=== PATIENT | female | born 1980 | race Hispanic/Latino ===

== ENCOUNTER 2020-01-27 10:31 | Day surgery (SDC) | payer OTHER, SELFPAY ==
[~2020-01-27 10:31] MED LIST: Dexamethasone 20 MG/5 ML VIAL ONE; Glycopyrrolate 0.2 MG/ML 5 ML SYRINGE ONE; Ketorolac Tromethamine 30 MG/ML VIAL ONE; Lidocaine 1% PF 5 ML VIAL ONE; PROPOFOL 200 MG/20 ML VIAL ONE; Rocuronium Bromide 10 MG/ML (10ML VIAL) ONE; Succinylcholine Chloride 20 MG/ML 10 ml SYRINGE FS ONE
[2020-01-27 12:07] LABS: #Basophils 0.1 thou/uL (0.0-0.2); #Eosinphils 0.1 thou/uL (0.0-0.7); #Lymphocytes 1.4 thou/uL (1.20-3.40); #Monocytes 0.7 thou/uL (0.11-0.59); #Neutrophils 8.2 thou/uL (1.40-6.50); %Basophils 0.7 % (0.0-1.0); %Eosinophils 0.5 % (0.0-10.0); %Lymphocytes 13.6 % (21.0-51.0); %Monocytes 6.7 % (0.0-10.0); %Neutrophils 78.5 % (42.0-75.0); Hemoglobin 8.7 g/dL (12.0-16.0); Mean Corpuscular HGB CONC 29.7 g/dL (32.0-36.0); Mean Corpuscular Hemoglobin 19.5 pg (27.0-31.0); Mean Corpuscular Volume 65.6 fL (78.0-98.0); Mean Platelet Volume 12.4 fL (7.4-10.4); Platelet Count 368 thou/uL (130-400); RBC Distribution Width 18.7 % (11.5-14.5); Red Blood Cell (RBC) Count 4.48 mill/uL (4.20-5.40); White Blood Cell (WBC) Count 10.5 thou/uL (4.8-10.8)
[2020-01-27 12:12] LABS: BHCG - Serum Negative (NEGATIVE); Pregs Control Background? CLEAR/WHITE (CLR/WHITE); Pregs Control Bar Appear? YES (CONTROL BAR)
[2020-01-27 12:20] LABS: ALT (SGPT) 38 U/L (8-55); AST (SGOT) 24 U/L (5-34); Albumin 3.9 g/dL (3.5-5.0); Alkaline Phosphatase 80 U/L (40-110); Anion Gap 12 mmol/L (10-20); BUN (Urea Nitrogen) 11 mg/dL (7.0-18.7); Bilirubin, Total 0.3 mg/dL (0.2-1.2); Calc. Creatinine Clearance 0 mL/min (70-130); Calcium 8.8 mg/dL (7.8-10.44); Carbon Dioxide 25 mmol/L (22-29); Chloride 104 mmol/L (98-107); Estimated GFR-MDRD Greater than 90; Globulin 3.3 g/dL (2.4-3.5); Glucose 133 mg/dL (70-105); Lipase 8 U/L (8-78); Potassium 3.8 mmol/L (3.5-5.1); Protein, Total 7.2 g/dL (6.0-8.3); Sodium 137 mmol/L (136-145)
[2020-01-27 12:28] LABS: Anisocytosis SLIGHT = 6-15 cells (100X) (0-5/hpf); Hypochromia SLIGHT = 6-15 cells (100X) (0-5/hpf); Large Platelets SLIGHT; MDiff Complete? YES; Microcytosis SLIGHT = 6-15 cells (100X) (0-5/hpf); Ovalocytes SLIGHT = 2-5 cells (100X) (0-1/hpf); Platelet Morphology Comment Appears Adequate; Polychromasia SLIGHT = 2-3 cells (100X) (0-2/hpf); Target Cells SLIGHT = 2-5 cells (100X) (0-1/hpf)
[2020-01-27] MEDS ORDERED: Ondansetron PF 4 MG/2 ML Vial ONE ×2 (12:29→18:27)
[2020-01-27] MEDS ORDERED: Morphine 4 MG/ML VIAL ONE (12:29)
[2020-01-27] MEDS ORDERED: Fentanyl 100 MCG/2 ML VIAL ONE ×4 (13:19→16:41)
[2020-01-27 13:21] LABS: Bilirubin Negative (Negative); Blood, Urine Negative (Negative); Clarity Clear (Clear); Glucose, Urine (Dipstick) Normal (Negative); Ketone, Urine Trace mg/dL (Negative); Leukocyte Negative Leu/uL (Negative); Nitrite 2+ (Negative); Protein, Urine (Dipstick) 20 mg/dL (Neg-Trace); RBC/HPF 0-3 HPF (0-3); Specific Gravity, Urine 1.032 (1.002-1.036); Squamous Epithelial 0-3 HPF (0-3); Urobilinogen Normal mg/dL (Less than 2); WBC/HPF 0-3 HPF (0-3); pH, Urine 5.5 (5.0-9.0)
[2020-01-27 13:26] LABS: Bacteria/HPF 1+ HPF (None Seen)
[2020-01-27] MEDS ORDERED: Iopamidol-370 76% 500 ML 1 ML ONE (13:45)
--- NOTE | 2020-01-27 14:01 | CT ---
CT ABDOMEN AND PELVIS WITH IV CONTRAST 01/27/2020 CLINICAL INFORMATION: Acute onset of abdominal pain with associated nausea. COMPARISON: None. Technique: Multiple contiguous axial CT images are obtained through the abdomen and pelvis with IV contrast. Cor onal reformatted images are provided. FINDINGS: Lower Chest: Minimal dependent atelectasis. Vessels: Abdominal aorta is normal in caliber. Abdomen: Portal vein:Patent Gallbladder: Surgically absent. Liver: Decreased attenuation suggesting diffuse fatty infiltration. The liver is enlarged in cranioca udal dimensions measuring 25 cm. This may be on the basis of a Nuha's lobe configuration. A 1.5 cm hypodense lesion is seen in the posterior aspect medial segment left hepatic lobe which is difficu lt to further characterize on this exam. Spleen: within normal limits. Pancreas: within normal limits. Adrenals: within normal limits. Kidneys: within normal limits. Bowel: There is a supraumbilical ventral abdominal wall hernia which does contain a loop of small bow el. There is mild dilatation of the loops of bowel most proximal to the level of this hernia measuring 3.5 cm, but the remaining loops of small bowel are normal in caliber. A developing partial small bowel obstruction is a possibility. Minimal stranding is seen adjacent to the hernia. Appendix: The appendix is visualized and normal in caliber. Peritoneum: No ascites or free air; no fluid collection. Mesentery and Retroperitoneum: No enlarged mesenteric or retroperitoneal lymph nodes. Abdominal Wall: Ventral abdominal wall hernia as described above. Pelvis: Reproductive Organs: There is suggestion of a 6.8 cm mass in the uterine fundus likely attributable t o a uterine fibroid. Bladder: Incompletely distended. Bones: Degenerative changes are seen in the thoracic spine. IMPRESSION: 1. Supra umbilical ventral abdominal wall hernia which does contain a loop of bowel. The loops of bow el most proximal to this hernia defect are mildly dilated measuring up to 3.5 cm. A developing partial small bowel obstruction is a possibility. Minimal inflammatory stranding is seen within the h ernia defect adjacent to the loop of small bowel. 2. Probable uterine fibroid. 3. Diffuse fatty infiltration of the liver with a difficult to characterize 1.5 cm hypodense lesion m edial segment left hepatic lobe. Follow-up CT scan versus MRI abdomen in 4-6 months is recommended. 4. Above findings discussed with Dr. Aranda in the emergency department on 01/27/2020 at 1358 hours.
[2020-01-27] MEDS ORDERED: CEFAZOLIN 2 GM in Premix Bag 1 BAG IVPB SCH (14:30)
[2020-01-27] MEDS ORDERED: Bupivacaine/Epinephrine 0.25% 30 ML VIAL ONE (14:38)
[2020-01-27] MEDS ORDERED: Lidocaine 2% PF 5 ML VIAL ONE (14:38)
[2020-01-27] MEDS ORDERED: Levofloxacin 500 mg/D5W 100 ml Premix Bag ONE (15:10)
[2020-01-27] MEDS ORDERED: Morphine 2 MG/ML VIAL ONE (17:31)
--- NOTE | 2020-01-27 18:12 | HP ---
CHIEF COMPLAINT: Severe mid-abdominal pain. HISTORY OF PRESENT ILLNESS: The patient is a 39-year-old morbidly obese female with a 2-day history of severe pain in the supraumbilical area associated with nausea. No vomiting. Last meal was yesterday. No previous episodes. PAST MEDICAL HISTORY: Diabetes mellitus, morbid obesity. PAST SURGICAL HISTORY: She has had a laparoscopic cholecystectomy and a section. MEDICATIONS: Metformin, but she had not taken it in months. ALLERGIES: SHE HAS AN ALLERGY TO PENICILLIN. SOCIAL HISTORY: She is . No tobacco. No alcohol. Unemployed. FAMILY HISTORY: Diabetes and hypertension. PHYSICAL EXAMINATION: VITAL SIGNS: She is afebrile, pulse 93, and blood pressure 116/71. GENERAL: Morbidly obese female, very, very tearful, crying, but awake, alert. HEENT: Unremarkable. LUNGS: Clear. HEART: Regular rate and rhythm. ABDOMEN: Morbidly obese. Very tender in the supraumbilical area. There is fullness there. She is very obese. The hernia has been attempted to be reduced and multiple times it is extremely tender. She would not allow me to really put much pressure on it. EXTREMITIES: Unremarkable. LABORATORY DATA: Her white count is 10.5, H and H of 8.7 and 29, and platelet count 368. Electrolytes; her glucose is 133, otherwise unremarkable. Urinalysis negative. She had a CT scan showing, she has a fatty liver. There is a 1.5-cm hypodense lesion in the posterior aspect of the medial left hepatic lobe. She has a supraumbilical ventral hernia, which contains a loop of small bowel with some mild dilatation of the proximal loops. ASSESSMENT: Strangulated ventral hernia. PLAN: To do an open repair. CONSENT: I have discussed planned procedure as well as risk of bleeding, infection, recurrence, need to resect small bowel. She understands and gives informed consent. Job ID: [id number]
[2020-01-27] MEDS ORDERED: HYDROcodone/Acetaminophen 5/325 mg Tablet ONE (18:27)
--- NOTE | 2020-01-27 18:46 | OP ---
DATE OF PROCEDURE: 01/27/2020 PREOPERATIVE DIAGNOSIS: Incarcerated ventral hernia. PROCEDURES PERFORMED: Open ventral hernia repair with mesh implantation. INDICATIONS: This is a 39-year-old morbidly obese female, who developed a painful mass in her epigastrium 2 days ago, it progressed. She was having nausea. CT showed small bowel incarcerated with proximal obstruction. FINDINGS: Bowel was viable 8 cm PROCEED mesh patch used to repair it. DESCRIPTION OF PROCEDURE: After informed consent was obtained, the patient was taken to the operating room, given general endotracheal anesthesia. She was placed in the supine position. Her abdomen was prepped and draped in usual fashion. An upper midline incision was performed. Subcu was divided sharply down to the hernia sac. The hernia sac was then dissected out circumferentially down to the fascial defect, which was fairly small and tight. I released the fascial defect superiorly to allow strangulation to be relieved. The hernia sac was then excised and the hernia reduced. Reduction was maintained with an 8-cm PROCEED mesh patch. This was hydrated and inserted intra-abdominally. The wings were sutured to the abdominal wall with interrupted 0 Ethibond suture. Then, hemostasis was achieved electrocautery. Subcu reapproximated with interrupted 3-0 Vicryl. Local anesthesia was infiltrated subcutaneously and deep with 0.5% Marcaine and then skin closed with a running subcuticular 4-0 Rapide. Steri-Strips applied. Sterile bandage applied. The patient tolerated the procedure well, transferred to Recovery in good condition. Sponge and needle count verified correct x2. Job ID: [id number]
[2020-01-28 13:23] LABS: SARS-CoV-2 MS2 Positive; SARS-CoV-2 N Gene Negative; SARS-CoV-2 S Gene Negative; SARS-CoV-2 by NAA Not Detected (NotDetected); SARS-CoV-2 orf1ab Negative
== END 2020-01-27 19:20 | disposition home or self-care (01) ==
LOC: ERS 10:31 → SDC 14:45
PROVIDERS: ATTEND Surgery
PROC: 0WUF0JZ Supplement Abdominal Wall with Synthetic Substitute, Open Approach (ICD-10-PCS; principal; 2020-01-27)
DX: K43.6 Other and unspecified ventral hernia with obstruction, without gangrene (principal); E66.01 Morbid (severe) obesity due to excess calories; K76.0 Fatty (change of) liver, not elsewhere classified; E11.9 Type 2 diabetes mellitus without complications; Z79.84 Long term (current) use of oral hypoglycemic drugs; Z88.0 Allergy status to penicillin; Z20.828 Contact with and (suspected) exposure to other viral communicable diseases
CPT/HCPCS: 36415; 74177; 80053; 81003; 81015; 83605; 83690; 84703; 85025; 87635; 93005; 96361; 96374; 96375; 96376; C1781; J1100; J1885; J1956; J2001; J2270; J2405; J2704; J3010; Q9967; U0003

== ENCOUNTER 2021-08-07 10:01 | Outpatient (CLI) | payer OTHER | END 2021-08-07 10:02 | disposition home or self-care (01) | LOC: RAD 10:01 | PROVIDERS: ATTEND Surgery | DX: E66.01 Morbid (severe) obesity due to excess calories (principal) | CPT/HCPCS: 74220 ==

== ENCOUNTER 2021-09-17 14:06 | Outpatient (CLI) | payer OTHER | END 2021-09-17 14:07 | disposition home or self-care (01) | LOC: DTY/OP 14:06 | PROVIDERS: ATTEND Surgery | DX: E66.01 Morbid (severe) obesity due to excess calories (principal) | CPT/HCPCS: 97802 ==